=== PATIENT | female | born 1970 | race Caucasian/White ===

== ENCOUNTER 2016-09-05 22:47 | Inpatient (IN) | payer MEDICAID, OTHER ==
[~2016-09-05] VITALS: Ht 165.1 cm; Wt 88.7 kg
[~2016-09-05 22:47] MED LIST: BENZ2TAB10 PO; HYDR-4031 PO; LURA80 PO
[2016-09-05 23:44] LABS: BASOPHILS % (AUTO) 0.8 % (0.0-2.0); EOSINOPHILS % (AUTO) 1.8 % (1.0-6.0); HEMATOCRIT 34.5 % (36-46); HEMOGLOBIN 10.9 g/dL (12.0-16.0); LYMPHOCYTES # (AUTO) 1.7 K/uL (1.0-4.8); LYMPHOCYTES % (AUTO) 26.4 % (22.0-44.0); MEAN CORPUSCULAR HEMOGLOBIN 29.8 pg (26.0-34.0); MEAN CORPUSCULAR HGB CONC 31.6 G/dL (31.0-37.0); MEAN CORPUSCULAR VOLUME 94 fL (80-100); MONOCYTES # (AUTO) 0.6 K/uL (0.1-1.0); MONOCYTES % (AUTO) 9.3 % (2.0-9.0); NEUTROPHILS % (AUTO) 61.7 % (40.0-70.0); PLATELET COUNT (AUTO) 155 K/uL (150-450); RED BLOOD CELL COUNT(AUTO) 3.66 MIL/uL (4.00-5.20); RED CELL DISTRIBUTION WIDTH 14.1 % (11.5-14.5); WHITE BLOOD COUNT (AUTO) 6.4 K/uL (4.5-11.0)
[2016-09-05 23:51] LABS: ANION GAP 8 mmol/L (8-16); CALCIUM, TOTAL 8.7 mg/dL (8.8-10.5); CARBON DIOXIDE 28 mmol/L (22-29); CHLORIDE 104 mmol/L (98-107); CREATININE 0.79 mg/dL (0.60-1.30); GLOMERULAR FILTR. RATE CALC > 60 mL/min (>60); POTASSIUM 3.7 mmol/L (3.5-5.1); SODIUM SERUM 140 mmol/L (136-145); UREA NITROGEN, BLOOD 13 mg/dL (7-18)
[2016-09-05 23:57] LABS: ALANINE AMINOTRANSFERASE 13 U/L (12-78); ALBUMIN 3.4 g/dL (3.4-5.0); ASPARTATE AMINOTRANSFERASE 13 U/L (15-37); BILIRUBIN,TOTAL 0.3 mg/dL (0.1-1.0); TOTAL PROTEIN, SERUM 7.1 g/dL (6.4-8.2)
[2016-09-06] MEDS ORDERED: LORazepam 2 MG TABLET PO ONE (05:00)
[2016-09-06] MEDS ORDERED: DiphenhydrAMINE HCL 25 MG CAPSULE PO ONE (05:00)
[2016-09-06] MEDS ORDERED: HALOPERIDOL 5 MG TABLET PO ONE (05:00)
[2016-09-06] MEDS ORDERED: OLANZapine 5 MG RAPDIS TABLET PO PRN (05:15)
[2016-09-06] MEDS ORDERED: ZOLPIDEM TARTRATE 10 MG TABLET PO PRN (05:15)
[2016-09-06 05:58] LABS: APPEARANCE,URINE CLEAR (CLEAR); GLUCOSE, URINE (UA) NEGATIVE (NEGATIVE); KETONES,URINE NEGATIVE (NEGATIVE); LEUKOCYTE ESTERASE ,URINE NEGATIVE (NEGATIVE); OCCULT BLOOD,URINE NEGATIVE (NEGATIVE); PH,URINE 5.5 (5.0-8.0); PROTEIN,URINE NEGATIVE (NEGATIVE)
[2016-09-06 06:02] LABS: ADD UA MICROSCOPIC NO
[2016-09-06 06:13] VITALS: BP 131/71
[2016-09-06] MEDS ORDERED: INFLUENZA VIRUS VACCINE QVS 2016-17 (3YR+)/PF 60 MCG/0.5 ML SYRINGE IM ONE (06:30)
[2016-09-06 08:41] VITALS: BP 118/66
[2016-09-06] MEDS: CEPHALEXIN MONOHYDRATE 500 MG CAPSULE PO SCH ×3 (13:05→21:55)
[2016-09-06] MEDS ORDERED: ACETAMINOPHEN 325 MG TABLET PO PRN ×2 (13:30→22:15)
[2016-09-06] MEDS ORDERED: LOPERAMIDE HCL 2 MG CAPSULE PO PRN (13:30)
[2016-09-06] MEDS ORDERED: MAG HYDROX/AL HYDROX/SIMETH ES 30 ML SUSPENSION UDCUP PO PRN (13:30)
[2016-09-06] MEDS ORDERED: HydrOXYzine PAMOATE 50 MG CAPSULE PO PRN (13:30)
[2016-09-06] MEDS ORDERED: PROMETHAZINE HCL 25 MG TABLET PO PRN (13:30)
[2016-09-06] MEDS ORDERED: TUBERCULIN, PURIFIED PROTEIN DERIVATIVE 5 TU/0.1 ML SYG ID ONE (13:30)
[2016-09-06] MEDS ORDERED: GuaiFENesin/D-METHORPHAN [SUGAR-FREE] 200-20MG/10 ML SYRUP UDCUP PO PRN (13:30)
[2016-09-06] MEDS ORDERED: MAGNESIUM HYDROXIDE SUSPENSION 30 ML UDCUP PO PRN (13:30)
[2016-09-06] MEDS ORDERED: BREXPIPRAZOLE 1 MG TABLET PO PRN (16:00)
[2016-09-06 16:35] VITALS: BP 101/61
[2016-09-06 16:50] VITALS: BP 108/66
[2016-09-06] MEDS: SULFAMETHOX/TRIMETH DS 800-160 MG/TABLET PO SCH (16:54)
[2016-09-06] MEDS: LORazepam 2 MG TABLET PO PRN (16:54)
[2016-09-06] MEDS: THIAMINE HCL 100 MG TABLET PO SCH (16:54)
[2016-09-06] MEDS ORDERED: OLANZapine 5 MG RAPDIS TABLET PO SCH (21:00)
[2016-09-06] MEDS: BREXPIPRAZOLE 1 MG TABLET PO SCH (21:55)
[2016-09-06] MEDS ORDERED: IBUPROFEN 400 MG TABLET PO PRN (22:15)
[2016-09-07 01:37] VITALS: BP 124/75
[2016-09-07] MEDS: FERROUS SULFATE 325 MG EC TABLET PO SCH ×3 (06:54→17:00)
[2016-09-07 08:29] LABS: BASOPHILS # (AUTO) 0.05 K/uL (0.00-0.20); EOSINOPHILS # (AUTO) 0.09 K/uL (0.00-0.70); HEMATOCRIT 35.2 % (36-46); HEMOGLOBIN 11.9 g/dL (12.0-16.0); LYMPHOCYTES # (AUTO) 1.5 K/uL (1.0-4.8); LYMPHOCYTES % (AUTO) 32.9 % (22.0-44.0); MEAN CORPUSCULAR HEMOGLOBIN 31.3 pg (26.0-34.0); MEAN CORPUSCULAR HGB CONC 33.8 G/dL (31.0-37.0); MEAN CORPUSCULAR VOLUME 93 fL (80-100); MONOCYTES # (AUTO) 0.3 K/uL (0.1-1.0); MONOCYTES % (AUTO) 5.8 % (2.0-9.0); NEUTROPHILS # (AUTO) 2.7 K/uL (1.8-7.7); NEUTROPHILS % (AUTO) 58.3 % (40.0-70.0); PLATELET COUNT (AUTO) 127 K/uL (150-450); WHITE BLOOD COUNT (AUTO) 4.7 K/uL (4.5-11.0)
[2016-09-07] MEDS: CEPHALEXIN MONOHYDRATE 500 MG CAPSULE PO SCH ×4 (08:36→20:29)
[2016-09-07] MEDS: SULFAMETHOX/TRIMETH DS 800-160 MG/TABLET PO SCH ×2 (08:36→17:00)
[2016-09-07] MEDS: THIAMINE HCL 100 MG TABLET PO SCH ×2 (08:36→17:00)
[2016-09-07] MEDS: MULTIVITAMINS WITH MINERALS, THERAPEUTIC TABLET PO SCH (08:36)
[2016-09-07] MEDS: FOLIC ACID 1 MG TABLET PO SCH (08:36)
[2016-09-07 08:58] VITALS: BP 100/55
[2016-09-07 09:04] LABS: ALANINE AMINOTRANSFERASE 12 U/L (12-78); ANION GAP 7 mmol/L (8-16); ASPARTATE AMINOTRANSFERASE 15 U/L (15-37); BILIRUBIN,TOTAL 0.5 mg/dL (0.1-1.0); CALCIUM, TOTAL 8.4 mg/dL (8.8-10.5); CARBON DIOXIDE 28 mmol/L (22-29); CHLORIDE 106 mmol/L (98-107); CHOL/HDL RATIO 1.8 (3.9-5.7); CREATININE 0.78 mg/dL (0.60-1.30); GLOMERULAR FILTR. RATE CALC > 60 mL/min (>60); POTASSIUM 3.8 mmol/L (3.5-5.1); SODIUM SERUM 141 mmol/L (136-145); THYROID STIMULATING HORMONE 1.27 uIU/mL (0.36-3.74); TOTAL PROTEIN, SERUM 6.5 g/dL (6.4-8.2); UREA NITROGEN, BLOOD 14 mg/dL (7-18)
[2016-09-07 18:24] VITALS: BP 100/54
[2016-09-07] MEDS: BREXPIPRAZOLE 1 MG TABLET PO SCH (20:29)
[2016-09-08 04:25] VITALS: BP 117/78
[2016-09-08] MEDS: LORazepam 2 MG TABLET PO PRN (04:26)
[2016-09-08] MEDS: FERROUS SULFATE 325 MG EC TABLET PO SCH ×3 (06:40→16:44)
[2016-09-08 08:23] VITALS: BP 95/63
[2016-09-08] MEDS: FOLIC ACID 1 MG TABLET PO SCH (08:36)
[2016-09-08] MEDS: MULTIVITAMINS WITH MINERALS, THERAPEUTIC TABLET PO SCH (08:36)
[2016-09-08] MEDS: SULFAMETHOX/TRIMETH DS 800-160 MG/TABLET PO SCH ×2 (08:36→16:44)
[2016-09-08] MEDS: CEPHALEXIN MONOHYDRATE 500 MG CAPSULE PO SCH ×4 (08:36→20:34)
[2016-09-08] MEDS: THIAMINE HCL 100 MG TABLET PO SCH ×2 (08:36→16:44)
[2016-09-08 16:22] VITALS: BP 112/69
[2016-09-08] MEDS ORDERED: BREXPIPRAZOLE 2 MG TABLET PO SCH (21:00)
[2016-09-09] MEDS: FERROUS SULFATE 325 MG EC TABLET PO SCH ×3 (06:33→16:06)
[2016-09-09 08:38] VITALS: BP 118/75
[2016-09-09] MEDS: CEPHALEXIN MONOHYDRATE 500 MG CAPSULE PO SCH ×4 (09:19→20:49)
[2016-09-09] MEDS: THIAMINE HCL 100 MG TABLET PO SCH ×2 (09:19→16:06)
[2016-09-09] MEDS: MULTIVITAMINS WITH MINERALS, THERAPEUTIC TABLET PO SCH (09:19)
[2016-09-09] MEDS: FOLIC ACID 1 MG TABLET PO SCH (09:20)
[2016-09-09] MEDS: SULFAMETHOX/TRIMETH DS 800-160 MG/TABLET PO SCH ×2 (09:23→16:06)
[2016-09-09] MEDS: LORazepam 2 MG TABLET PO PRN (16:06)
[2016-09-09 17:48] VITALS: BP 110/68
[2016-09-09] MEDS: BREXPIPRAZOLE 1 MG TABLET PO SCH (20:49)
[2016-09-10 06:24] VITALS: BP 122/80
[2016-09-10] MEDS: FERROUS SULFATE 325 MG EC TABLET PO SCH ×3 (06:38→16:29)
[2016-09-10] MEDS: THIAMINE HCL 100 MG TABLET PO SCH ×2 (08:40→16:29)
[2016-09-10] MEDS: SULFAMETHOX/TRIMETH DS 800-160 MG/TABLET PO SCH ×2 (08:40→16:29)
[2016-09-10] MEDS: FOLIC ACID 1 MG TABLET PO SCH (08:40)
[2016-09-10] MEDS: MULTIVITAMINS WITH MINERALS, THERAPEUTIC TABLET PO SCH (08:40)
[2016-09-10] MEDS: CEPHALEXIN MONOHYDRATE 500 MG CAPSULE PO SCH ×4 (08:40→20:35)
[2016-09-10] MEDS: LORazepam 2 MG TABLET PO PRN ×2 (08:50→16:30)
[2016-09-10 09:20] VITALS: BP 101/60
[2016-09-10 16:14] VITALS: BP 134/76
[2016-09-10] MEDS: BREXPIPRAZOLE 1 MG TABLET PO SCH (20:38)
[2016-09-11] MEDS: LORazepam 2 MG TABLET PO PRN ×2 (03:45→08:25)
[2016-09-11 03:54] VITALS: BP 106/69
[2016-09-11] MEDS: FERROUS SULFATE 325 MG EC TABLET PO SCH ×3 (06:31→17:08)
[2016-09-11] MEDS: SULFAMETHOX/TRIMETH DS 800-160 MG/TABLET PO SCH ×2 (08:22→17:08)
[2016-09-11] MEDS: MULTIVITAMINS WITH MINERALS, THERAPEUTIC TABLET PO SCH (08:22)
[2016-09-11] MEDS: THIAMINE HCL 100 MG TABLET PO SCH ×2 (08:22→17:08)
[2016-09-11] MEDS: FOLIC ACID 1 MG TABLET PO SCH (08:22)
[2016-09-11] MEDS: CEPHALEXIN MONOHYDRATE 500 MG CAPSULE PO SCH ×4 (08:22→21:05)
[2016-09-11 08:23] VITALS: BP 100/56
[2016-09-11 19:55] VITALS: BP 105/69
[2016-09-11] MEDS: BREXPIPRAZOLE 1 MG TABLET PO SCH (21:05)
[2016-09-12 00:08] VITALS: BP 100/60
[2016-09-12] MEDS: LORazepam 2 MG TABLET PO PRN ×2 (00:08→09:33)
[2016-09-12] MEDS: FERROUS SULFATE 325 MG EC TABLET PO SCH ×3 (06:43→17:23)
[2016-09-12] MEDS: SULFAMETHOX/TRIMETH DS 800-160 MG/TABLET PO SCH ×2 (08:15→17:23)
[2016-09-12] MEDS: MULTIVITAMINS WITH MINERALS, THERAPEUTIC TABLET PO SCH (08:15)
[2016-09-12] MEDS: THIAMINE HCL 100 MG TABLET PO SCH ×2 (08:15→17:23)
[2016-09-12] MEDS: FOLIC ACID 1 MG TABLET PO SCH (08:15)
[2016-09-12] MEDS: CEPHALEXIN MONOHYDRATE 500 MG CAPSULE PO SCH ×4 (08:15→20:21)
[2016-09-12 08:48] VITALS: BP 118/74
[2016-09-12 16:05] VITALS: BP 109/72
[2016-09-12] MEDS: BREXPIPRAZOLE 2 MG TABLET PO SCH (20:21)
[2016-09-13 02:13] VITALS: BP 121/76
[2016-09-13] MEDS: LORazepam 2 MG TABLET PO PRN ×2 (03:31→13:07)
[2016-09-13] MEDS: FERROUS SULFATE 325 MG EC TABLET PO SCH ×3 (06:38→16:42)
[2016-09-13 08:09] VITALS: BP 105/64
[2016-09-13] MEDS: MULTIVITAMINS WITH MINERALS, THERAPEUTIC TABLET PO SCH (09:22)
[2016-09-13] MEDS: FOLIC ACID 1 MG TABLET PO SCH (09:22)
[2016-09-13] MEDS: CEPHALEXIN MONOHYDRATE 500 MG CAPSULE PO SCH ×4 (09:22→20:43)
[2016-09-13] MEDS: SULFAMETHOX/TRIMETH DS 800-160 MG/TABLET PO SCH ×2 (09:22→16:42)
[2016-09-13] MEDS: THIAMINE HCL 100 MG TABLET PO SCH ×2 (09:22→16:43)
[2016-09-13] MEDS ORDERED: BREX2TAB PO (15:19)
[2016-09-13] MEDS ORDERED: CEPH500 PO (16:03)
[2016-09-13] MEDS ORDERED: FERR-89 PO (16:03)
[2016-09-13] MEDS ORDERED: SULF1TAB42 PO (16:03)
[2016-09-13 16:14] VITALS: BP 102/66
[2016-09-13] MEDS ORDERED: THIA100 PO (16:15)
[2016-09-13] MEDS ORDERED: MULT-1203 PO (16:15)
[2016-09-13] MEDS ORDERED: FOLI1 PO (16:15)
[2016-09-13] MEDS: BREXPIPRAZOLE 2 MG TABLET PO SCH (20:43)
[2016-09-14] MEDS: LORazepam 2 MG TABLET PO PRN (02:20)
[2016-09-14 02:22] VITALS: BP 108/62
[2016-09-14] MEDS: FERROUS SULFATE 325 MG EC TABLET PO SCH (06:37)
== END 2016-09-14 07:10 | disposition home or self-care (01) | DRG 750 ==
LOC: EMS 22:49 → B3A 09-06 05:00
PROVIDERS: ADMIT Psychiatry & Neurology Psychiatry; ATTEND Psychiatry & Neurology Psychiatry
DX: F25.0 Schizoaffective disorder, bipolar type (principal); R45.851 Suicidal ideations; Z91.19 Patient's noncompliance with other medical treatment and regimen; D64.9 Anemia, unspecified; F17.210 Nicotine dependence, cigarettes, uncomplicated; Z59.0 Homelessness; Z90.49 Acquired absence of other specified parts of digestive tract; Z28.21 Immunization not carried out because of patient refusal
CPT/HCPCS: 83036; 84443; 99285; G0480

== ENCOUNTER 2017-02-01 13:34 | Inpatient (IN) | payer MEDICAID ==
[~2017-02-01] VITALS: Ht 165.1 cm; Wt 81.8 kg
[~2017-02-01 13:34] MED LIST changes: -BENZ2TAB10 PO; +BREX2TAB PO; +CEPH500 PO; +FERR-89 PO; +FOLI1 PO; -HYDR-4031 PO; -LURA80 PO; +MULT-1203 PO; +SULF1TAB42 PO; +THIA100 PO
[2017-02-01 14:15] LABS: BASOPHILS % (AUTO) 0.4 % (0.0-2.0); EOSINOPHILS % (AUTO) 1.4 % (1.0-6.0); HEMATOCRIT 32.6 % (36-46); HEMOGLOBIN 11.3 g/dL (12.0-16.0); LYMPHOCYTES # (AUTO) 1.7 K/uL (1.0-4.8); LYMPHOCYTES % (AUTO) 25.1 % (22.0-44.0); MEAN CORPUSCULAR HEMOGLOBIN 31.3 pg (26.0-34.0); MEAN CORPUSCULAR HGB CONC 34.6 G/dL (31.0-37.0); MEAN CORPUSCULAR VOLUME 90 fL (80-100); MONOCYTES # (AUTO) 0.4 K/uL (0.1-1.0); MONOCYTES % (AUTO) 6.5 % (2.0-9.0); NEUTROPHILS # (AUTO) 4.5 K/uL (1.8-7.7); NEUTROPHILS % (AUTO) 66.6 % (40.0-70.0); PLATELET COUNT (AUTO) 223 K/uL (150-450); RED BLOOD CELL COUNT(AUTO) 3.61 MIL/uL (4.00-5.20); RED CELL DISTRIBUTION WIDTH 13.8 % (11.5-14.5); WHITE BLOOD COUNT (AUTO) 6.8 K/uL (4.5-11.0)
[2017-02-01 14:28] LABS: ANION GAP 9 mmol/L (8-16); CALCIUM, TOTAL 8.9 mg/dL (8.8-10.5); CARBON DIOXIDE 26 mmol/L (22-29); CHLORIDE 104 mmol/L (98-107); CREATININE 0.66 mg/dL (0.60-1.30); GLOMERULAR FILTR. RATE CALC > 60 mL/min (>60); POTASSIUM 3.5 mmol/L (3.5-5.1); SODIUM SERUM 139 mmol/L (136-145); UREA NITROGEN, BLOOD 9 mg/dL (7-18)
[2017-02-01] MEDS ORDERED: LORazepam 2 MG TABLET PO ONE (14:30)
[2017-02-01 14:34] LABS: ALANINE AMINOTRANSFERASE 13 U/L (12-78); ALBUMIN 3.3 g/dL (3.4-5.0); ASPARTATE AMINOTRANSFERASE 13 U/L (15-37); BILIRUBIN,TOTAL 0.3 mg/dL (0.1-1.0); TOTAL PROTEIN, SERUM 6.9 g/dL (6.4-8.2)
[2017-02-01] MEDS ORDERED: ZOLPIDEM TARTRATE 10 MG TABLET PO PRN (15:45)
[2017-02-01] MEDS ORDERED: HALOPERIDOL 5 MG TABLET PO PRN (15:45)
[2017-02-01 17:30] VITALS: BP 116/70
[2017-02-01] MEDS ORDERED: PNEUMOCOCCAL VACCINE POLYVALENT 0.5 ML VIAL [PPSV23] IM ONE (19:00)
[2017-02-02 00:45] VITALS: BP 108/63
[2017-02-02] MEDS: FERROUS SULFATE 325 MG EC TABLET PO SCH ×3 (06:31→17:08)
[2017-02-02 08:16] VITALS: BP 113/72
[2017-02-02] MEDS: MULTIVITAMINS WITH MINERALS, THERAPEUTIC TABLET PO SCH (08:55)
[2017-02-02 16:20] VITALS: BP 111/62
[2017-02-02] MEDS: RisperiDONE 3 MG TABLET PO SCH (17:00)
[2017-02-03 04:22] VITALS: BP 118/84
[2017-02-03] MEDS: FERROUS SULFATE 325 MG EC TABLET PO SCH ×3 (06:23→16:45)
[2017-02-03] MEDS: MULTIVITAMINS WITH MINERALS, THERAPEUTIC TABLET PO SCH (09:37)
[2017-02-03] MEDS: RisperiDONE 3 MG TABLET PO SCH ×2 (09:37→16:46)
[2017-02-03 10:27] VITALS: BP 103/61
[2017-02-03 16:20] VITALS: BP 114/69
[2017-02-04 00:15] VITALS: BP 127/69
[2017-02-04] MEDS: LORazepam 2 MG TABLET PO PRN (00:22)
[2017-02-04] MEDS: FERROUS SULFATE 325 MG EC TABLET PO SCH ×3 (06:37→16:16)
[2017-02-04 08:45] VITALS: BP 111/69
[2017-02-04] MEDS: RisperiDONE 3 MG TABLET PO SCH ×3 (09:00→17:00)
[2017-02-04] MEDS: MULTIVITAMINS WITH MINERALS, THERAPEUTIC TABLET PO SCH (09:21)
[2017-02-04 16:27] VITALS: BP 101/66
[2017-02-05] MEDS: FERROUS SULFATE 325 MG EC TABLET PO SCH ×3 (06:38→16:48)
[2017-02-05 06:41] VITALS: BP 112/68
[2017-02-05] MEDS: RisperiDONE 3 MG TABLET PO SCH ×3 (09:00→16:59)
[2017-02-05 09:11] VITALS: BP 100/63
[2017-02-05] MEDS: MULTIVITAMINS WITH MINERALS, THERAPEUTIC TABLET PO SCH (09:21)
[2017-02-05 16:20] VITALS: BP 116/76
[2017-02-06 06:12] VITALS: BP 102/61
[2017-02-06] MEDS: FERROUS SULFATE 325 MG EC TABLET PO SCH ×3 (06:23→16:32)
[2017-02-06] MEDS: RisperiDONE 3 MG TABLET PO SCH ×3 (08:43→16:32)
[2017-02-06] MEDS: MULTIVITAMINS WITH MINERALS, THERAPEUTIC TABLET PO SCH (08:43)
[2017-02-06 09:13] VITALS: BP 110/67
[2017-02-06] MEDS: LORazepam 2 MG TABLET PO PRN ×2 (09:26→16:07)
[2017-02-06 16:00] VITALS: BP 106/69
[2017-02-07] MEDS: FERROUS SULFATE 325 MG EC TABLET PO SCH ×3 (07:00→17:00)
[2017-02-07 08:28] VITALS: BP 119/76
[2017-02-07] MEDS: MULTIVITAMINS WITH MINERALS, THERAPEUTIC TABLET PO SCH (08:52)
[2017-02-07] MEDS: RisperiDONE 3 MG TABLET PO SCH ×2 (08:55→17:00)
[2017-02-07 16:00] VITALS: BP 120/60
[2017-02-08 00:55] VITALS: BP 111/72
[2017-02-08] MEDS: FERROUS SULFATE 325 MG EC TABLET PO SCH ×3 (06:45→16:35)
[2017-02-08 08:07] VITALS: BP 107/56
[2017-02-08] MEDS: MULTIVITAMINS WITH MINERALS, THERAPEUTIC TABLET PO SCH (08:28)
[2017-02-08] MEDS: RisperiDONE 3 MG TABLET PO SCH ×2 (08:28→16:45)
[2017-02-08 16:24] VITALS: BP 109/76
[2017-02-09 06:23] VITALS: BP 105/64
[2017-02-09] MEDS: FERROUS SULFATE 325 MG EC TABLET PO SCH ×3 (07:10→16:43)
[2017-02-09] MEDS: MULTIVITAMINS WITH MINERALS, THERAPEUTIC TABLET PO SCH (08:30)
[2017-02-09 08:52] VITALS: BP 111/69
[2017-02-09] MEDS: RisperiDONE 3 MG TABLET PO SCH ×2 (09:00→16:43)
[2017-02-09 16:08] VITALS: BP 122/72
[2017-02-10] MEDS: FERROUS SULFATE 325 MG EC TABLET PO SCH ×3 (07:03→16:56)
[2017-02-10 07:10] VITALS: BP 126/79
[2017-02-10 08:36] VITALS: BP 115/58
[2017-02-10] MEDS: MULTIVITAMINS WITH MINERALS, THERAPEUTIC TABLET PO SCH (08:51)
[2017-02-10] MEDS: RisperiDONE 3 MG TABLET PO SCH ×2 (08:51→16:56)
[2017-02-10 16:47] VITALS: BP 126/84
[2017-02-11] MEDS: FERROUS SULFATE 325 MG EC TABLET PO SCH ×3 (06:38→16:23)
[2017-02-11 06:57] VITALS: BP 136/100
[2017-02-11 08:32] VITALS: BP 156/90
[2017-02-11] MEDS: RisperiDONE 3 MG TABLET PO SCH ×3 (09:00→16:23)
[2017-02-11] MEDS: MULTIVITAMINS WITH MINERALS, THERAPEUTIC TABLET PO SCH (09:06)
[2017-02-11 12:38] VITALS: BP 114/77
[2017-02-11 17:45] VITALS: BP 108/68
[2017-02-12 04:37] VITALS: BP 134/92
[2017-02-12] MEDS: FERROUS SULFATE 325 MG EC TABLET PO SCH ×3 (06:38→16:47)
[2017-02-12 08:49] VITALS: BP 117/74
[2017-02-12] MEDS: MULTIVITAMINS WITH MINERALS, THERAPEUTIC TABLET PO SCH (09:28)
[2017-02-12] MEDS: RisperiDONE 3 MG TABLET PO SCH ×2 (09:28→16:47)
[2017-02-12 16:21] VITALS: BP 114/68
[2017-02-13 06:31] VITALS: BP 113/71
[2017-02-13] MEDS: FERROUS SULFATE 325 MG EC TABLET PO SCH ×3 (06:57→16:36)
[2017-02-13 08:37] VITALS: BP 105/76
[2017-02-13] MEDS: RisperiDONE 3 MG TABLET PO SCH ×2 (08:38→16:36)
[2017-02-13] MEDS: MULTIVITAMINS WITH MINERALS, THERAPEUTIC TABLET PO SCH (08:38)
[2017-02-13 16:21] VITALS: BP 123/83
[2017-02-14 06:29] VITALS: BP 121/71
[2017-02-14] MEDS: FERROUS SULFATE 325 MG EC TABLET PO SCH ×3 (06:46→16:00)
[2017-02-14 08:21] VITALS: BP 132/89
[2017-02-14] MEDS: RisperiDONE 3 MG TABLET PO SCH ×2 (09:40→16:00)
[2017-02-14] MEDS: MULTIVITAMINS WITH MINERALS, THERAPEUTIC TABLET PO SCH (09:40)
[2017-02-14 16:10] VITALS: BP 112/76
[2017-02-15 06:42] VITALS: BP 104/79
[2017-02-15] MEDS: FERROUS SULFATE 325 MG EC TABLET PO SCH ×3 (06:54→17:05)
[2017-02-15] MEDS: MULTIVITAMINS WITH MINERALS, THERAPEUTIC TABLET PO SCH (09:24)
[2017-02-15] MEDS: RisperiDONE 3 MG TABLET PO SCH ×2 (09:24→17:06)
[2017-02-15 09:27] VITALS: BP 108/84
[2017-02-15 16:20] VITALS: BP 107/71
[2017-02-16 06:50] VITALS: BP 109/71
[2017-02-16] MEDS: FERROUS SULFATE 325 MG EC TABLET PO SCH ×3 (07:10→16:48)
[2017-02-16 08:14] VITALS: BP 113/61
[2017-02-16] MEDS: MULTIVITAMINS WITH MINERALS, THERAPEUTIC TABLET PO SCH (10:02)
[2017-02-16] MEDS: RisperiDONE 3 MG TABLET PO SCH ×2 (10:02→16:48)
[2017-02-16 16:14] VITALS: BP 123/80
[2017-02-17 05:05] VITALS: BP 140/76
[2017-02-17] MEDS: FERROUS SULFATE 325 MG EC TABLET PO SCH ×3 (06:40→17:15)
[2017-02-17] MEDS: RisperiDONE 3 MG TABLET PO SCH ×2 (08:10→17:15)
[2017-02-17] MEDS: MULTIVITAMINS WITH MINERALS, THERAPEUTIC TABLET PO SCH (08:10)
[2017-02-17 08:46] VITALS: BP 122/55
[2017-02-17 16:16] VITALS: BP 117/70
[2017-02-18 06:28] VITALS: BP 112/76
[2017-02-18] MEDS: FERROUS SULFATE 325 MG EC TABLET PO SCH ×3 (06:48→16:25)
[2017-02-18 08:34] VITALS: BP 107/63
[2017-02-18] MEDS: MULTIVITAMINS WITH MINERALS, THERAPEUTIC TABLET PO SCH (09:47)
[2017-02-18] MEDS: RisperiDONE 3 MG TABLET PO SCH ×2 (09:47→16:25)
[2017-02-18 16:31] VITALS: BP 126/79
[2017-02-19] MEDS: FERROUS SULFATE 325 MG EC TABLET PO SCH ×3 (06:51→16:45)
[2017-02-19 06:53] VITALS: BP 136/86
[2017-02-19 08:51] VITALS: BP 108/64
[2017-02-19] MEDS: RisperiDONE 3 MG TABLET PO SCH ×2 (09:08→16:45)
[2017-02-19] MEDS: MULTIVITAMINS WITH MINERALS, THERAPEUTIC TABLET PO SCH (09:09)
[2017-02-19 16:26] VITALS: BP 109/70
[2017-02-20] MEDS: FERROUS SULFATE 325 MG EC TABLET PO SCH ×3 (06:33→17:47)
[2017-02-20 06:36] VITALS: BP 138/90
[2017-02-20 09:00] VITALS: BP 119/85
[2017-02-20] MEDS ORDERED: TUBERCULIN, PURIFIED PROTEIN DERIVATIVE 5 TU/0.1 ML SYG ID ONE (09:00)
[2017-02-20] MEDS: RisperiDONE 3 MG TABLET PO SCH ×2 (09:17→16:21)
[2017-02-20] MEDS: MULTIVITAMINS WITH MINERALS, THERAPEUTIC TABLET PO SCH (09:17)
[2017-02-20 16:00] VITALS: BP 120/78
[2017-02-21] MEDS: FERROUS SULFATE 325 MG EC TABLET PO SCH ×3 (06:25→16:33)
[2017-02-21 09:09] VITALS: BP 112/73
[2017-02-21] MEDS: MULTIVITAMINS WITH MINERALS, THERAPEUTIC TABLET PO SCH (09:28)
[2017-02-21] MEDS: RisperiDONE 3 MG TABLET PO SCH ×2 (09:28→16:33)
[2017-02-21 16:46] VITALS: BP 112/64
[2017-02-22 05:48] VITALS: BP 111/76
[2017-02-22] MEDS: FERROUS SULFATE 325 MG EC TABLET PO SCH ×3 (06:25→16:21)
[2017-02-22 08:47] VITALS: BP 100/63
[2017-02-22] MEDS: MULTIVITAMINS WITH MINERALS, THERAPEUTIC TABLET PO SCH (08:55)
[2017-02-22] MEDS: RisperiDONE 3 MG TABLET PO SCH ×2 (08:55→16:21)
[2017-02-22 16:23] VITALS: BP 110/65
[2017-02-23 06:01] VITALS: BP 110/69
[2017-02-23] MEDS: FERROUS SULFATE 325 MG EC TABLET PO SCH ×3 (06:45→16:50)
[2017-02-23 08:25] VITALS: BP 107/67
[2017-02-23] MEDS: RisperiDONE 3 MG TABLET PO SCH ×2 (09:58→16:50)
[2017-02-23] MEDS: MULTIVITAMINS WITH MINERALS, THERAPEUTIC TABLET PO SCH (09:59)
[2017-02-23 16:18] VITALS: BP 126/84
[2017-02-24] MEDS: FERROUS SULFATE 325 MG EC TABLET PO SCH ×3 (06:29→16:30)
[2017-02-24] MEDS: MULTIVITAMINS WITH MINERALS, THERAPEUTIC TABLET PO SCH (08:52)
[2017-02-24] MEDS: RisperiDONE 3 MG TABLET PO SCH ×2 (08:52→16:30)
[2017-02-24 09:55] VITALS: BP 111/62
[2017-02-24 16:37] VITALS: BP 109/69
[2017-02-25] MEDS: FERROUS SULFATE 325 MG EC TABLET PO SCH ×3 (06:54→16:57)
[2017-02-25 06:56] VITALS: BP 118/75
[2017-02-25 08:10] VITALS: BP 103/64
[2017-02-25] MEDS: MULTIVITAMINS WITH MINERALS, THERAPEUTIC TABLET PO SCH (10:08)
[2017-02-25] MEDS: RisperiDONE 3 MG TABLET PO SCH ×2 (10:08→16:57)
[2017-02-25 16:23] VITALS: BP 119/73
[2017-02-26 00:07] VITALS: BP 110/70
[2017-02-26] MEDS: FERROUS SULFATE 325 MG EC TABLET PO SCH ×3 (06:29→16:23)
[2017-02-26 08:37] VITALS: BP 120/74
[2017-02-26] MEDS: RisperiDONE 3 MG TABLET PO SCH ×2 (08:37→16:23)
[2017-02-26] MEDS: MULTIVITAMINS WITH MINERALS, THERAPEUTIC TABLET PO SCH (08:37)
[2017-02-26 16:23] VITALS: BP 120/80
[2017-02-27] MEDS: FERROUS SULFATE 325 MG EC TABLET PO SCH ×3 (06:38→17:25)
[2017-02-27 07:00] VITALS: BP 115/77
[2017-02-27] MEDS: RisperiDONE 3 MG TABLET PO SCH ×2 (08:57→17:25)
[2017-02-27] MEDS: MULTIVITAMINS WITH MINERALS, THERAPEUTIC TABLET PO SCH (08:57)
[2017-02-27 09:07] VITALS: BP 120/82
[2017-02-27 16:28] VITALS: BP 120/80
[2017-02-28] MEDS: FERROUS SULFATE 325 MG EC TABLET PO SCH ×3 (06:49→17:06)
[2017-02-28] MEDS: RisperiDONE 3 MG TABLET PO SCH ×2 (09:00→17:06)
[2017-02-28] MEDS: MULTIVITAMINS WITH MINERALS, THERAPEUTIC TABLET PO SCH (09:00)
[2017-02-28 10:30] VITALS: BP 11/64
[2017-02-28 16:34] VITALS: BP 111/64
[2017-03-01] MEDS: FERROUS SULFATE 325 MG EC TABLET PO SCH ×3 (06:44→17:21)
[2017-03-01 06:54] VITALS: BP 119/87
[2017-03-01 08:30] VITALS: BP 106/75
[2017-03-01] MEDS: MULTIVITAMINS WITH MINERALS, THERAPEUTIC TABLET PO SCH (09:04)
[2017-03-01] MEDS: RisperiDONE 3 MG TABLET PO SCH ×2 (09:04→17:21)
[2017-03-01 16:02] VITALS: BP 106/60
[2017-03-02] MEDS: FERROUS SULFATE 325 MG EC TABLET PO SCH ×3 (06:38→17:09)
[2017-03-02 08:12] VITALS: BP 102/61
[2017-03-02] MEDS: MULTIVITAMINS WITH MINERALS, THERAPEUTIC TABLET PO SCH (09:09)
[2017-03-02] MEDS: RisperiDONE 3 MG TABLET PO SCH ×2 (09:09→17:09)
[2017-03-02 16:24] VITALS: BP 103/71
[2017-03-03] MEDS: FERROUS SULFATE 325 MG EC TABLET PO SCH ×3 (06:44→17:13)
[2017-03-03 07:14] VITALS: BP 109/68
[2017-03-03 08:55] VITALS: BP 99/56
[2017-03-03] MEDS: MULTIVITAMINS WITH MINERALS, THERAPEUTIC TABLET PO SCH (09:59)
[2017-03-03] MEDS: RisperiDONE 3 MG TABLET PO SCH ×2 (09:59→17:13)
[2017-03-03 16:16] VITALS: BP 109/64
[2017-03-04 06:14] VITALS: BP 102/62
[2017-03-04] MEDS: FERROUS SULFATE 325 MG EC TABLET PO SCH ×3 (06:36→16:28)
[2017-03-04 08:02] VITALS: BP 103/69
[2017-03-04] MEDS: RisperiDONE 3 MG TABLET PO SCH ×2 (09:39→16:28)
[2017-03-04] MEDS: MULTIVITAMINS WITH MINERALS, THERAPEUTIC TABLET PO SCH (09:39)
[2017-03-04] MEDS: DIVALPROEX SODIUM 500 MG DR TABLET PO SCH (16:28)
[2017-03-04 18:13] VITALS: BP 100/69
[2017-03-05 06:25] VITALS: BP 103/68
[2017-03-05] MEDS: FERROUS SULFATE 325 MG EC TABLET PO SCH ×3 (06:26→16:34)
[2017-03-05 08:30] VITALS: BP 109/82
[2017-03-05] MEDS: DIVALPROEX SODIUM 500 MG DR TABLET PO SCH ×2 (10:10→16:34)
[2017-03-05] MEDS: MULTIVITAMINS WITH MINERALS, THERAPEUTIC TABLET PO SCH (10:10)
[2017-03-05] MEDS: RisperiDONE 3 MG TABLET PO SCH ×2 (10:10→16:34)
[2017-03-05 16:38] VITALS: BP 118/65
[2017-03-06] MEDS: FERROUS SULFATE 325 MG EC TABLET PO SCH ×3 (06:42→16:40)
[2017-03-06 07:03] VITALS: BP 112/80
[2017-03-06 08:45] VITALS: BP 115/87
[2017-03-06] MEDS: RisperiDONE 3 MG TABLET PO SCH ×2 (09:05→16:40)
[2017-03-06] MEDS: MULTIVITAMINS WITH MINERALS, THERAPEUTIC TABLET PO SCH (09:05)
[2017-03-06] MEDS: DIVALPROEX SODIUM 500 MG DR TABLET PO SCH ×2 (09:05→16:40)
[2017-03-06 16:41] VITALS: BP 105/71
[2017-03-07 00:11] VITALS: BP 106/72
[2017-03-07] MEDS: FERROUS SULFATE 325 MG EC TABLET PO SCH ×3 (06:38→16:47)
[2017-03-07 08:11] VITALS: BP 121/60
[2017-03-07] MEDS: RisperiDONE 3 MG TABLET PO SCH ×2 (09:33→16:47)
[2017-03-07] MEDS: DIVALPROEX SODIUM 500 MG DR TABLET PO SCH ×2 (09:33→16:47)
[2017-03-07] MEDS: MULTIVITAMINS WITH MINERALS, THERAPEUTIC TABLET PO SCH (09:33)
[2017-03-07 16:00] VITALS: BP 128/70
[2017-03-08 03:03] VITALS: BP 116/66
[2017-03-08] MEDS: FERROUS SULFATE 325 MG EC TABLET PO SCH ×3 (05:58→16:43)
[2017-03-08] MEDS: RisperiDONE 3 MG TABLET PO SCH ×2 (08:56→16:43)
[2017-03-08] MEDS: DIVALPROEX SODIUM 500 MG DR TABLET PO SCH ×2 (08:56→16:43)
[2017-03-08] MEDS: MULTIVITAMINS WITH MINERALS, THERAPEUTIC TABLET PO SCH (08:56)
[2017-03-08 13:08] VITALS: BP 120/70
[2017-03-08 16:35] VITALS: BP 133/85
[2017-03-09 01:26] VITALS: BP 112/69
[2017-03-09] MEDS: FERROUS SULFATE 325 MG EC TABLET PO SCH ×3 (06:28→17:07)
[2017-03-09] MEDS: RisperiDONE 3 MG TABLET PO SCH ×2 (08:33→17:07)
[2017-03-09] MEDS: DIVALPROEX SODIUM 500 MG DR TABLET PO SCH ×2 (08:33→17:07)
[2017-03-09] MEDS: MULTIVITAMINS WITH MINERALS, THERAPEUTIC TABLET PO SCH (08:33)
[2017-03-09 09:31] VITALS: BP 108/76
[2017-03-09 16:39] VITALS: BP 125/73
[2017-03-10] MEDS: FERROUS SULFATE 325 MG EC TABLET PO SCH ×3 (06:38→17:12)
[2017-03-10 06:50] VITALS: BP 107/74
[2017-03-10] MEDS: MULTIVITAMINS WITH MINERALS, THERAPEUTIC TABLET PO SCH (08:42)
[2017-03-10] MEDS: DIVALPROEX SODIUM 500 MG DR TABLET PO SCH ×2 (08:42→17:12)
[2017-03-10] MEDS: RisperiDONE 3 MG TABLET PO SCH ×2 (08:42→17:12)
[2017-03-10 09:05] VITALS: BP 120/80
[2017-03-10 16:32] VITALS: BP 122/77
[2017-03-11 06:10] VITALS: BP 105/73
[2017-03-11] MEDS: FERROUS SULFATE 325 MG EC TABLET PO SCH ×3 (06:40→17:00)
[2017-03-11 08:10] VITALS: BP 116/75
[2017-03-11] MEDS: DIVALPROEX SODIUM 500 MG DR TABLET PO SCH ×2 (08:59→17:00)
[2017-03-11] MEDS: RisperiDONE 3 MG TABLET PO SCH ×2 (08:59→17:00)
[2017-03-11] MEDS: MULTIVITAMINS WITH MINERALS, THERAPEUTIC TABLET PO SCH (08:59)
[2017-03-11 16:46] VITALS: BP 122/70
[2017-03-12] MEDS: FERROUS SULFATE 325 MG EC TABLET PO SCH ×3 (06:06→17:01)
[2017-03-12 06:45] VITALS: BP 128/76
[2017-03-12 08:52] VITALS: BP 105/68
[2017-03-12] MEDS: MULTIVITAMINS WITH MINERALS, THERAPEUTIC TABLET PO SCH (09:12)
[2017-03-12] MEDS: DIVALPROEX SODIUM 500 MG DR TABLET PO SCH ×2 (09:12→17:01)
[2017-03-12] MEDS: RisperiDONE 3 MG TABLET PO SCH ×2 (09:12→17:01)
[2017-03-12 16:13] VITALS: BP 122/80
[2017-03-13 00:28] VITALS: BP 100/62
[2017-03-13] MEDS: FERROUS SULFATE 325 MG EC TABLET PO SCH ×3 (06:39→17:28)
[2017-03-13] MEDS ORDERED: LORATADINE 10 MG TABLET PO PRN (07:30)
[2017-03-13] MEDS ORDERED: BENZOCAINE/MENTHOL LOZENGE PO PRN (07:30)
[2017-03-13] MEDS ORDERED: FLUTICASONE PROPIONATE 50 MCG/SPRAY 16 GM NASAL SPRAY NASAL PRN (07:30)
[2017-03-13] MEDS: MULTIVITAMINS WITH MINERALS, THERAPEUTIC TABLET PO SCH (09:29)
[2017-03-13] MEDS: DIVALPROEX SODIUM 500 MG DR TABLET PO SCH ×2 (09:29→17:28)
[2017-03-13] MEDS: RisperiDONE 3 MG TABLET PO SCH ×2 (09:29→17:28)
[2017-03-13 16:18] VITALS: BP 114/81
[2017-03-14 06:45] VITALS: BP 138/90
[2017-03-14] MEDS: FERROUS SULFATE 325 MG EC TABLET PO SCH ×3 (06:55→16:57)
[2017-03-14 08:40] VITALS: BP 110/75
[2017-03-14] MEDS: DIVALPROEX SODIUM 500 MG DR TABLET PO SCH ×2 (08:51→16:57)
[2017-03-14] MEDS: RisperiDONE 3 MG TABLET PO SCH ×2 (08:51→16:57)
[2017-03-14] MEDS: MULTIVITAMINS WITH MINERALS, THERAPEUTIC TABLET PO SCH (08:52)
[2017-03-14 17:03] VITALS: BP 113/60
[2017-03-15 02:51] VITALS: BP 108/69
[2017-03-15] MEDS: FERROUS SULFATE 325 MG EC TABLET PO SCH ×3 (06:43→17:02)
[2017-03-15 08:10] VITALS: BP 109/65
[2017-03-15] MEDS: RisperiDONE 3 MG TABLET PO SCH ×2 (08:53→16:18)
[2017-03-15] MEDS: MULTIVITAMINS WITH MINERALS, THERAPEUTIC TABLET PO SCH (08:53)
[2017-03-15] MEDS: DIVALPROEX SODIUM 500 MG DR TABLET PO SCH ×2 (08:53→16:18)
[2017-03-15 16:30] VITALS: BP 117/70
[2017-03-16 00:43] VITALS: BP 110/67
[2017-03-16] MEDS: FERROUS SULFATE 325 MG EC TABLET PO SCH ×3 (06:50→17:07)
[2017-03-16 08:26] VITALS: BP 104/62
[2017-03-16] MEDS: RisperiDONE 3 MG TABLET PO SCH ×2 (09:24→16:28)
[2017-03-16] MEDS: DIVALPROEX SODIUM 500 MG DR TABLET PO SCH ×2 (09:24→16:28)
[2017-03-16] MEDS: MULTIVITAMINS WITH MINERALS, THERAPEUTIC TABLET PO SCH (09:24)
[2017-03-16 16:34] VITALS: BP 121/80
[2017-03-17 06:27] VITALS: BP 110/71
[2017-03-17] MEDS: FERROUS SULFATE 325 MG EC TABLET PO SCH ×2 (06:27→10:41)
[2017-03-17] MEDS: RisperiDONE 3 MG TABLET PO SCH (09:03)
[2017-03-17] MEDS: MULTIVITAMINS WITH MINERALS, THERAPEUTIC TABLET PO SCH (09:03)
[2017-03-17] MEDS: DIVALPROEX SODIUM 500 MG DR TABLET PO SCH (09:03)
[2017-03-17 09:11] VITALS: BP 101/66
[2017-03-17] MEDS ORDERED: RISP3 PO (13:18)
[2017-03-17] MEDS ORDERED: DIVA500T35 PO (13:18)
== END 2017-03-17 13:35 | disposition home or self-care (01) | DRG 750 ==
LOC: EEVIPCON 13:36 → EMS 13:36 → B2S 15:45 → EMS 16:22
PROVIDERS: ADMIT Psychiatry & Neurology Psychiatry; ATTEND Psychiatry & Neurology Psychiatry
DX: F25.9 Schizoaffective disorder, unspecified (principal); R45.851 Suicidal ideations; F22 Delusional disorders; F32.9 Major depressive disorder, single episode, unspecified; D64.9 Anemia, unspecified; F41.9 Anxiety disorder, unspecified
CPT/HCPCS: 87081; 99285; G0480